=== PATIENT | male | born 1995 | race Caucasian/White ===

== ENCOUNTER → 2020-06-21 | Outpatient (CLI) | payer SELFPAY ==
[~2020-06-21] MED LIST: PERCOCET 5-3251 EACH PO; SEPTDS PO; ZOFRAN4 MG PO
== END | disposition home or self-care (01) ==
LOC: COVID19 10:26
PROVIDERS: ATTEND Internal Medicine
DX: Z20.822 Contact with and (suspected) exposure to COVID-19 (principal)

== ENCOUNTER 2023-11-26 16:32 | Emergency (ER) | payer MEDICAID ==
[~2023-11-26] VITALS: Ht 180.3 cm; Wt 70.3 kg
[2023-11-26] MEDS ORDERED: Midazolam Hydrochloride 2 MG/2 ML VIAL IV ONE (16:50)
[2023-11-26 16:56] LABS: BASO % 0.3 % (0.0-1.0); EOS # 0.1 10*3/uL (0.0-0.4); EOS % 1.4 % (1.0-4.0); LYMPH # 1.7 10*3/uL (1.3-4.4); LYMPH % 24.6 % (27.0-41.0); MEAN CELL VOLUME 85.1 fl (80.0-94.0); MEAN CORPUSCULAR HGB 29.8 pg (27.0-31.0); MEAN PLATELET VOLUME 9.3 fl (9.6-12.3); MONO # 0.5 10*3/uL (0.1-1.0); MONO % 7.6 % (3.0-9.0); NEUT # 4.6 10*3/uL (2.3-7.9); PLATELET COUNT AUTOMATED 309 10*3/uL (130-400); RED CELL DISTRI WIDTH 11.3 % (0-14.5)
[2023-11-26 17:14] LABS: ALKALINE PHOSPHATASE 55 U/L (46-116); CHLORIDE 104 mmol/L (98-107); POTASSIUM 3.2 mmol/L (3.4-5.1); SGPT/ALT 11 U/L (5-49); TOTAL PROTEIN 7.6 gm/dL (6.0-8.0)
[2023-11-26 17:15] LABS: BUN < 5 mg/dl (9-23)
[2023-11-26] MEDS ORDERED: POTASSIUM CHLORIDE 20 MEQ TAB PO ONE (17:45)
[2023-11-27] MEDS ORDERED: HYDROXYZINE PAM25 M1 PO (00:18)
== END 2023-11-26 17:55 | disposition home or self-care (01) ==
LOC: ED 16:32
PROVIDERS: Emergency Medicine
DX: R07.89 Other chest pain (principal); E87.6 Hypokalemia; F15.10 Other stimulant abuse, uncomplicated; R00.0 Tachycardia, unspecified; Z79.2 Long term (current) use of antibiotics; Z79.899 Other long term (current) drug therapy

== ENCOUNTER 2023-11-27 | Emergency (ER) | payer MEDICAID ==
[~2023-11-27] VITALS: Ht 180.3 cm; Wt 71.7 kg
[2023-11-27] MEDS ORDERED: LORazepam 2 MG TAB PO ONE (00:05)
[2023-11-27] MEDS ORDERED: HYDROXYZINE PAM25 M1 PO (00:18)
== END 2023-11-27 02:21 | disposition home or self-care (01) ==
LOC: ED
DX: F41.9 Anxiety disorder, unspecified (principal); F15.90 Other stimulant use, unspecified, uncomplicated; R06.02 Shortness of breath